=== PATIENT | male | born 1945 | race African-American/Black ===

== ENCOUNTER → 2017-10-09 | Outpatient (CLI) | payer OTHER ==
[~2017-10-09] MED LIST: AMLO10TA2 PO; CEPH-368 PO; CYCL-259 PO; CYCL5TAB PO; HYDR-3245 PO; METO50TA82 PO; QUET100T PO; TRAM100T13 PO
== END | disposition home or self-care (01) ==
LOC: CFH 14:16
PROVIDERS: ATTEND Nurse Practitioner Primary Care
DX: R42 Dizziness and giddiness (principal)
CPT/HCPCS: 93880

== ENCOUNTER 2018-06-18 08:38 | Emergency (ER) | payer MEDICARE, OTHER ==
[~2018-06-18] VITALS: Ht 203.2 cm; Wt 115.0 kg
[2018-06-18] MEDS ORDERED: KETOROLAC 30 MG/1 ML IM ONE (09:00)
[2018-06-18] MEDS ORDERED: KETOROLAC 30 MG/1 ML ONE (09:33)
[2018-06-18 09:46] LABS: BASOPHILS # (AUTO) 0.07 x10^3/uL (0-0.1); BASOPHILS % (AUTO) 1 % (0-1); EOSINOPHILS # (AUTO) 0.07 x10^3/uL (0-0.4); EOSINOPHILS % (AUTO) 1 % (1-7); LYMPHOCYTES # (AUTO) 2.87 x10^3/uL (1-3.4); LYMPHOCYTES % (AUTO) 42 % (22-44); MD NO; MEAN CORPUSCULAR HEMOGLOBIN 26.9 pg (27.5-34.5); MEAN CORPUSCULAR HGB CONC 33.1 g/dL (33.2-36.2); MEAN CORPUSCULAR VOLUME 81.4 fL (81-97); MEAN PLATELET VOLUME 9.7 fL (7.4-10.4); MONOCYTES # (AUTO) 0.58 x10^3/uL (0.2-0.8); MONOCYTES % (AUTO) 8 % (2-9); NEUTROPHILS # (AUTO) 3.31 x10^3/uL (1.8-6.8); NEUTROPHILS % (AUTO) 48 % (42-75); PLATELET COUNT 176 x10^3/uL (130-400); RED BLOOD COUNT 5.22 x10^6/uL (4.38-5.82); RED CELL DISTRIBUTION WIDTH 14.5 % (9.4-14.8)
[2018-06-18 09:50] LABS: ALBUMIN 3.2 g/dL (3.4-5.0); ANION GAP 8 mmol/L (5-15); CALCIUM 8.2 mg/dL (8.5-10.1); CHLORIDE 106 mmol/L (98-107); CREATININE 1.21 mg/dL (0.7-1.3)
[2018-06-18] MEDS ORDERED: SODIUM CHLORIDE FLUSH 10ML SYR IVF ONE (10:00)
[2018-06-18 10:35] LABS: HCT (SEDRATE) 42.5 % (39.2-51.8)
[2018-06-18 12:20] VITALS: BP 128/84
[2018-06-18] MEDS ORDERED: LEVO25TA2 PO (12:26)
[2018-06-18] MEDS ORDERED: GADOBUTROL 10 MMOL/10 ML PFS ONE (13:17)
== END 2018-06-18 13:37 | disposition home or self-care (01) ==
LOC: ED 09:00
DX: G89.29 Other chronic pain (principal); M54.5 Low back pain; I10 Essential (primary) hypertension
CPT/HCPCS: 36415; 72110; 72158; 80048; 82040; 85025; 85651; 86140; 96372; 99285; A9585; J1885

== ENCOUNTER → 2019-01-21 | Outpatient (CLI) | payer MEDICARE ==
[~2019-01-21] MED LIST changes: -AMLO10TA2 PO; +AMLO10TA8 PO; +GADOBUTROL 10 MMOL/10 ML PFS ONE; +LEVO25TA2 PO
== END | disposition home or self-care (01) ==
LOC: CFH 09:59
PROVIDERS: ATTEND Neurological Surgery
DX: M48.07 Spinal stenosis, lumbosacral region (principal); M48.061 Spinal stenosis, lumbar region without neurogenic claudication; M51.26 Other intervertebral disc displacement, lumbar region; M51.27 Other intervertebral disc displacement, lumbosacral region
CPT/HCPCS: 72100; 72158; 82565; A9585